=== PATIENT | female | born 1985 | race Caucasian/White ===

== ENCOUNTER 2022-01-31 15:12 | Outpatient (CLI) | payer BC, SELFPAY ==
--- NOTE | ~2022-01-31 | XR_ITS ---
EXAMINATION: XR abdomen/kub 1V INDICATION: Difficulty urinating TECHNIQUE: Supine views of the abdomen were obtained on 2 radiographs. COMPARISON: None FINDINGS: There are two adjacent calcifications in the left pelvis of unclear location but plausibly in the left distal ureter. No additional suspected urolithiasis is identified. The visualized lung ba ses are clear. The bowel gas pattern is normal. IMPRESSION: 1. Left pelvic calcifications which could reflect phleboliths versus possible ureteral stone. Correla te for left flank pain. Reviewed, dictated and finalized at location F. IMPRESSION: 1. Left pelvic calcifications which could reflect phleboliths versus possible u reteral stone. Correlate for left flank pain.
== END 2022-01-31 15:13 | disposition home or self-care (01) ==
PROVIDERS: PCP Nurse Practitioner Family; Visit Provider Nurse Practitioner Family
DX: R39.198 Other difficulties with micturition (principal)
CPT/HCPCS: 74018

== ENCOUNTER 2024-05-03 11:33 | Emergency (ER) | payer SELFPAY ==
--- NOTE | ~2024-05-03 | XR_ITS ---
XR chest 2V Ordering provider: Wendy Garcia MD History: 38 years Female with . SOB . Comparison: None. FINDINGS: MEDIASTINUM: The cardiac silhouette is not enlarged. LUNGS: No infiltrates, effusions or pneumothorax. OTHER: No free air under the diaphragm. IMPRESSION: No acute cardiopulmonary pathology. Reviewed, dictated and finalized at location A.
[2024-05-03 11:36] VITALS: BP 147/82; PULSE 79; RESP 20; TEMP 36.3; O2SAT 98
[2024-05-03 11:41] LABS: Glucose Point of Care 140 mg/dl (65-105)
[2024-05-03 14:12] VITALS: RESP 20
--- NOTE | 2024-05-03 14:33 | ECG_ITS ---
Test Date: 2024-05-03 14:50:31 Measurements Intervals [place] Rate: 61 P: 46 [place]: 168 QRS: 75 QRSD: 93 T: 180 QT: 387 QTc: 390 Interpretive Statements SINUS RHYTHM LOW QRS VOLTAGE IN PRECORDIAL LEADS INCOMPLETE RIGHT BUNDLE BRANCH BLOCK BORDERLINE T WAVE ABNORMALITY- DIFFUSE LEADS BASELINE ARTIFACT- I, II, III BORDERLINE ECG No previous ECG available for comparison Electronically Signed On 05-03-2024 14:55:27 CDT by Anoop Ledesma D.O.
--- NOTE | 2024-05-03 14:35 | ED.RECABL ---
HPI - Recheck/Abnormal Lab/Rx General Chief Complaint: Recheck/Abnormal Lab/Rx Stated Complaint: dyspnea, hyperglycemia Time Seen by Provider: 05/03/24 13:54 History of Present Illness HPI narrative: Patient is a 38-year-old female with a history of thyroid cancer, pituitary tumor presenting with swelling and shortness of breath. Patient states that her health insurance lapsed due to a change in jobs and has been unable to get her Lasix or levothyroxine for the last 2 months. States that she has been experiencing progressively worsening generalized swelling. States that she also feels very short of breath with exertion. States that sometimes she will have chest pain. States that she hurts all over and feels very tight. No infectious complaints. No further complaints. Related Data Allergies Allergy/AdvReac Type Severity Reaction Status Date / Time No Known Allergies Allergy Verified 05/03/24 14:14 Review of Systems Review of Systems: All systems reviewed & are unremarkable except as noted in HPI and below Exam Narrative: GENERAL: Well-appearing, in no acute distress, pleasant cooperative HEAD: Normocephalic, atraumatic. EYES: PERRLA and EOMI. ENT: Mucous membranes moist. NECK: Supple. CHEST: Clear to auscultation. No respiratory distress. HEART: Regular rate and rhythm. No murmur heard ABDOMEN: Soft, nontender, nondistended EXTREMITIES: Normal range of motion. nonpitting edema bilateral lower extremities SKIN: Warm, dry, no rash. NEURO: No focal deficits. Alert and oriented x3. PSYCH: Normal mood and affect. Course Vital Signs Vital signs: Vital Signs Temperature 97.4 F L 05/03/24 11:36 Pulse Rate 79 05/03/24 11:36 Respiratory Rate 20 05/03/24 11:36 Blood Pressure 147/82 H 05/03/24 11:36 Pulse Oximetry 98 05/03/24 11:36 Oxygen Delivery Room Air 05/03/24 11:36 Temperature 97.4 F L 05/03/24 11:36 Pulse Rate 72 05/03/24 17:14 Respiratory Rate 19 05/03/24 17:14 Blood Pressure 115/75 05/03/24 17:14 Pulse Oximetry 98 05/03/24 17:14 Oxygen Delivery Room Air 05/03/24 11:36 MDM - Recheck/Abnormal Lab/Rx MDM Narrative Medical decision making narrative: 38-year-old female presenting with generalized swelling, dyspnea, fatigue in the setting of running out of her meds. Vitals were within normal limits. Exam remarkable for the above. EKG per my interpretation shows normal sinus rhythm, nonspecific T-wave flattening, no ST elevations or depressions. Blood work without significant abnormality. Creatinine is very slightly bumped to 1.10. Advised that she get this checked other PCP to ensure normalizes. Troponin undetectable. ProBNP normal. Chest x-ray without acute abnormalities. Will send in for the patient's Lasix prescription, by a post with a follow-up. Appropriate return precautions given. Patient agreeable with this plan. Discharged in stable condition. Differential Diagnosis Differential diagnosis: Likely other (Swelling, dyspnea, fatigue) Medical Records Attestation: I reviewed the patient's medical records. Lab Data Attestation: I reviewed the patient's lab results. 05/03/24 15:00 05/03/24 15:00 Labs: Lab Results 05/03/24 05/03/24 05/03/24 Range/Units 11:36 15:00 16:17 WBC 8.1 (4.5-10.0) K/mm3 RBC 4.27 (4.2-5.4) M/mm3 Hgb 13.3 (12.0-15.0) g/dL Hct 39.7 (37.0-47.0) % MCV 93.0 (80-100) fl MCH 31.1 (26-34) pg MCHC 33.5 (32-36) g/dl RDW 15.3 H (11.5-14.5) % Plt Count 210 (150-375) k/mm3 MPV 9.8 (7.4-10.4) fl Immature Gran % (Auto) 1.0 H (0-0.5) % Neut % (Auto) 69.4 (45.5-73.1) % Lymph % (Auto) 22.2 (18.3-44.2) % Dickson % (Auto) 5.4 (2.6-8.5) % Eos % (Auto) 1.4 (0-4.4) % Baso % (Auto) 0.6 (0.2-1.2) % Lymph # (Auto) 1.81 (0.9-3.2) K/mm3 Dickson # (Auto) 0.4 (0.1-0.6) K/mm3 Eos # (Auto) 0.1 (0-0.3) K/mm3 Baso # (Auto) 0.1 (0.0-
[2024-05-03] MEDS: FUROSEMIDE INJ 40 MG/4 ML VIAL 20 MG IV PUSH (15:00)
[2024-05-03 15:10] LABS: Basophils Absolute Auto 0.1 K/mm3 (0.0-0.1); Basophils Percent Auto 0.6 % (0.2-1.2); Eosinophils Absolute Auto 0.1 K/mm3 (0-0.3); Eosinophils Percent Auto 1.4 % (0-4.4); Hematocrit 39.7 % (37.0-47.0); Hemoglobin 13.3 g/dL (12.0-15.0); Immature Granulocyte Absolute 0.08 K/mm3 (0.00-0.031); Lymphocytes Absolute Auto 1.81 K/mm3 (0.9-3.2); Lymphocytes Percent Auto 22.2 % (18.3-44.2); Mean Corpuscular HGB Conc 33.5 g/dl (32-36); Mean Corpuscular Hemoglobin 31.1 pg (26-34); Mean Platelet Volume 9.8 fl (7.4-10.4); Monocytes Absolute Auto 0.4 K/mm3 (0.1-0.6); Monocytes Percent Auto 5.4 % (2.6-8.5); Neutrophils Absolute Auto 5.7 K/mm3 (1.3-6.7); Neutrophils Percent Auto 69.4 % (45.5-73.1); Platelet Count Result 210 k/mm3 (150-375); Red Blood Count 4.27 M/mm3 (4.2-5.4); Red Cell Distribution Width 15.3 % (11.5-14.5); White Blood Count 8.1 K/mm3 (4.5-10.0)
[2024-05-03 15:20] LABS: Alanine Aminotransferase 33 U/L (6-35); Albumin Level 4.8 g/dL (3.5-5.1); Alkaline Phosphatase 77 U/L (38-126); Anion Gap 11 mmol/L (4-12); Aspartate Amino Transferase 35 U/L (14-36); Bilirubin,Total 0.6 mg/dL (0.2-1.3); Blood Urea Nitrogen 16 mg/dL (7-17); Calcium 9.7 mg/dL (8.4-10.2); Carbon Dioxide 25 mmol/L (22-30); Chloride 99 mmol/L (98-107); Estimated CRCL calculation 74 ml/min; Estimated Glomerular Filt Rate 55; Glucose 141 mg/dL (65-110); Potassium 3.9 mmol/L (3.4-5.0); Sodium 135 mmol/L (137-145)
[2024-05-03 15:32] LABS: NT Pro B Type Natriuretic Pept < 20 pg/mL (19.9-100); Troponin I < 0.012 ng/mL (0.000-0.034)
[2024-05-03 16:28] LABS: Appearance Urine Clear (Clear); Bilirubin Urine Negative (Negative); Blood Urine Negative (Negative); Color Urine Yellow (Yellow); Glucose Urine UA Negative (Negative); Ketones Urine Negative (Negative); Leukocyte Esterase Ur Negative LEU/UL (Negative); Nitrate Urine Negative (Negative); Protein Urine Negative (Negative); Specific Grav Ur 1.006 (1.001-1.035); Urobilinogen Urine 0.2 mg/dL (<2.0); pH Urine 5.5 (5.0-9.0)
[2024-05-03 16:47] LABS: Add Urine Microscopic? NO
[2024-05-03 17:14] VITALS: BP 115/75; PULSE 72; RESP 19; O2SAT 98
== END 2024-05-03 18:04 | disposition home or self-care (01) ==
PROVIDERS: Emergency Provider Emergency Medicine; PCP Nurse Practitioner Family
DX: R60.9 Edema, unspecified (principal); R53.83 Other fatigue; Z76.0 Encounter for issue of repeat prescription; T50.1X6A Underdosing of loop [high-ceiling] diuretics, initial encounter; T38.1X6A Underdosing of thyroid hormones and substitutes, initial encounter; Z91.138 Patient's unintentional underdosing of medication regimen for other reason
CPT/HCPCS: 36415; 71046; 80053; 81003; 82948; 83880; 84484; 85025; 93005; 96374; 99284; J1940